=== PATIENT | female | born 1940 | race African-American/Black ===

== ENCOUNTER 2018-05-15 18:23 | Inpatient (IN) | payer OTHER ==
[~2018-05-15] VITALS: Ht 162.6 cm; Wt 62.6 kg
[2018-05-24] MEDS ORDERED: AMLODIPINE BESY10 MG PO (07:48)
[2018-05-24] MEDS ORDERED: SIMVASTATIN40 MG PO (07:49)
[2018-05-24] MEDS ORDERED: TOPROL XL100 M1 PO (07:49)
[2018-05-24] MEDS ORDERED: HYDRALAZINE HCL50 MG PO (07:50)
[2018-05-24] MEDS ORDERED: NAMENDA10 MG PO (07:50)
== END 2018-05-24 11:54 | disposition home health service (06) | DRG 623 ==
LOC: ER 18:23 → SEC-K 05-16 09:03 → MEDJ 05-16 09:03 → MEDI 05-16 09:03 → MEDJ 05-17 19:49
PROC: 8E0ZXY6 Isolation (ICD-10-PCS; 2018-05-17)
PROC: 0JBQ0ZZ Excision of Right Foot Subcutaneous Tissue and Fascia, Open Approach (ICD-10-PCS; principal; 2018-05-18)
DX: E11.621 Type 2 diabetes mellitus with foot ulcer (principal); L97.518 Non-pressure chronic ulcer of other part of right foot with other specified severity; M86.671 Other chronic osteomyelitis, right ankle and foot; E11.65 Type 2 diabetes mellitus with hyperglycemia; I10 Essential (primary) hypertension; N17.8 Other acute kidney failure; G30.8 Other Alzheimer's disease; F02.80 Dementia in other diseases classified elsewhere, unspecified severity, without behavioral disturbance, psychotic disturbance, mood disturbance, and anxiety; D50.8 Other iron deficiency anemias; B95.1 Streptococcus, group B, as the cause of diseases classified elsewhere; E78.4 Other hyperlipidemia; B95.62 Methicillin resistant Staphylococcus aureus infection as the cause of diseases classified elsewhere; E11.69 Type 2 diabetes mellitus with other specified complication

== ENCOUNTER 2019-01-04 14:24 | Inpatient (IN) | payer OTHER ==
[~2019-01-04] VITALS: Ht 144.8 cm; Wt 72.6 kg
[~2019-01-04 14:24] MED LIST: AMLODIPINE BESY10 MG PO; HYDRALAZINE HCL50 MG PO; NAMENDA10 MG PO; SIMVASTATIN40 MG PO; TOPROL XL100 M1 PO
[2019-01-04] MEDS ORDERED: LOSARTAN POTAS100 MG PO (15:40)
[2019-01-04] MEDS ORDERED: GLIMEPIRIDE4 MG PO (15:40)
[2019-01-04] MEDS ORDERED: CARDURA1 MG (15:41)
[2019-01-04] MEDS ORDERED: JANUMET 50-1,01 EACH PO (15:41)
[2019-01-04] MEDS ORDERED: ASPIR 8181 MG PO (15:41)
--- NOTE | 2019-01-04 15:56 | NUR ---
SE RECIBE PTE ALERA Y ORIENTADA X3, EN COMPANIA DE TEE HIJO, PTE INDICA VENIR POR UN DOLOR EN EL COSTADO LADO DERECHO DESDE HACE 2 [place] DE MANERA INTERMITENTE. PTE ES DIABETICA POR LO CUAL SE LE REALIZA DXT A PTE Y SE ENCUENTRA EN 409MG/DL. SE NOTIFICA A SOBRE RESULTADO DE GLUCOSA EN MICHAEL. SE COLOCA A PTE EN HAFSA 10.
--- NOTE | 2019-01-04 17:53 | NUR ---
PACIENTE ALERTA Y ORIENTADA X3. SE ORIENTA SOBRE TX Y PROCEDIMIENTO A REALIZAR Y REFIERE ENTENDER. SE ADMINISTRA MEDICAMENTOS RHIANNON ORDEN MEDICA. SE REALIZA MUESTRAS DE LABORATORIO BAJO MEDIDAS ASEPTICAS. CANALIZACION PATENTE Y BENSON DE EDEMA Y ERITEMA. SE MANTIENE BAJO OBSERVACION POR CAMBIOS SIGNIFICATIVOS.
== END 2019-01-14 11:49 | disposition home or self-care (01) | DRG 418 ==
LOC: ER 14:24 → MEDI 23:56
PROVIDERS: Surgery; ADMIT Internal Medicine
PROC: BF37ZZZ Magnetic Resonance Imaging (MRI) of Pancreas (ICD-10-PCS; 2019-01-04)
PROC: 30233N1 Transfusion of Nonautologous Red Blood Cells into Peripheral Vein, Percutaneous Approach (ICD-10-PCS; 2019-01-04)
PROC: 4A12X4Z Monitoring of Cardiac Electrical Activity, External Approach (ICD-10-PCS; 2019-01-04)
PROC: B246ZZZ Ultrasonography of Right and Left Heart (ICD-10-PCS; 2019-01-04)
PROC: BW40ZZZ Ultrasonography of Abdomen (ICD-10-PCS; 2019-01-04)
PROC: 0FC98ZZ Extirpation of Matter from Common Bile Duct, Via Natural or Artificial Opening Endoscopic (ICD-10-PCS; 2019-01-08)
PROC: 0F798ZZ Dilation of Common Bile Duct, Via Natural or Artificial Opening Endoscopic (ICD-10-PCS; 2019-01-08)
PROC: BF18YZZ Fluoroscopy of Pancreatic Ducts using Other Contrast (ICD-10-PCS; 2019-01-08)
PROC: 0T9B70Z Drainage of Bladder with Drainage Device, Via Natural or Artificial Opening (ICD-10-PCS; 2019-01-10)
PROC: 0FT44ZZ Resection of Gallbladder, Percutaneous Endoscopic Approach (ICD-10-PCS; principal; 2019-01-10 19:15)
DX: K80.50 Calculus of bile duct without cholangitis or cholecystitis without obstruction (principal); N17.8 Other acute kidney failure; L97.411 Non-pressure chronic ulcer of right heel and midfoot limited to breakdown of skin; I12.9 Hypertensive chronic kidney disease with stage 1 through stage 4 chronic kidney disease, or unspecified chronic kidney disease; E11.22 Type 2 diabetes mellitus with diabetic chronic kidney disease; N18.3 Chronic kidney disease, stage 3 (moderate); D63.1 Anemia in chronic kidney disease; Z79.4 Long term (current) use of insulin; E78.2 Mixed hyperlipidemia; D72.828 Other elevated white blood cell count; E11.51 Type 2 diabetes mellitus with diabetic peripheral angiopathy without gangrene; E11.65 Type 2 diabetes mellitus with hyperglycemia

== ENCOUNTER 2019-12-17 19:26 | Inpatient (IN) | payer OTHER ==
[~2019-12-17] VITALS: Ht 157.5 cm; Wt 56.7 kg
[~2019-12-17 19:26] MED LIST changes: +ASPIR 8181 MG PO; +CARDURA1 MG; +GLIMEPIRIDE4 MG PO; +JANUMET 50-1,01 EACH PO; +LOSARTAN POTAS100 MG PO
--- NOTE | 2019-12-17 19:48 | NUR ---
SE RECIBE PTE ALERTA Y ORIENTADA X3 LA CUAL REFIERE VENIR POR ULCERA EN PIE RT. PTE REFEIRE SER DIABETICA E HIPERTENSA. SE MIDEN S/V A PTE Y SE COLOCA EN AREA DE OBSERVACION.
--- NOTE | 2019-12-17 23:51 | NUR ---
PACIENTE ALERTA Y ORIENTADA X3 ES EVALUADA POR DR. GALLO QUIEN ORDENA REALIZAR MUESTRAS DE LABORATORIO Y ADMINISTRAR MEDICAMENTO SE OREINTA A PACIENTE AY FAMILIAR SOBRE ORDEN MEDICA SE EJECUTA ORDEN, PACIENTE EN ESPERA PARA RADIOGRAFIA.
--- NOTE | 2019-12-18 07:31 | NUR ---
SE RECIBE PAICNETE ESTABLE EN CONSUTA CON EL .LE SE OBSERVA PACIENTE TRANUILA CON IVF PATENTE IBRE DEDEMA EN COMPANIA DE FAMILIAR SE MANTIEIEN PACIENTE CON BARANDA EEVADA.
[2019-12-26] MEDS ORDERED: FLUCONAZOLE200 MG PO (14:59)
== END 2019-12-26 19:37 | disposition home or self-care (01) | DRG 629 ==
LOC: ER 19:26 → MEDJ 12-18 15:10 → SEC-K 12-18 15:10 → MEDJ 12-18 18:10
PROVIDERS: ADMIT Internal Medicine
PROC: BL31ZZZ Magnetic Resonance Imaging (MRI) of Lower Extremity Connective Tissue (ICD-10-PCS; 2019-12-22)
PROC: 30233N1 Transfusion of Nonautologous Red Blood Cells into Peripheral Vein, Percutaneous Approach (ICD-10-PCS; 2019-12-24)
PROC: 0QBR0ZZ Excision of Left Toe Phalanx, Open Approach (ICD-10-PCS; principal; 2019-12-25)
DX: E11.69 Type 2 diabetes mellitus with other specified complication (principal); M86.9 Osteomyelitis, unspecified; B37.49 Other urogenital candidiasis; E11.621 Type 2 diabetes mellitus with foot ulcer; I10 Essential (primary) hypertension; G30.9 Alzheimer's disease, unspecified; F02.80 Dementia in other diseases classified elsewhere, unspecified severity, without behavioral disturbance, psychotic disturbance, mood disturbance, and anxiety; E78.5 Hyperlipidemia, unspecified; E11.22 Type 2 diabetes mellitus with diabetic chronic kidney disease; I12.9 Hypertensive chronic kidney disease with stage 1 through stage 4 chronic kidney disease, or unspecified chronic kidney disease; N18.3 Chronic kidney disease, stage 3 (moderate); N17.9 Acute kidney failure, unspecified; D63.1 Anemia in chronic kidney disease; E11.65 Type 2 diabetes mellitus with hyperglycemia; Z89.421 Acquired absence of other right toe(s); Z79.4 Long term (current) use of insulin; B96.5 Pseudomonas (aeruginosa) (mallei) (pseudomallei) as the cause of diseases classified elsewhere

== ENCOUNTER 2019-12-27 08:36 | Emergency (ER) | payer OTHER ==
[~2019-12-27] VITALS: Ht 162.6 cm; Wt 65.8 kg
[~2019-12-27 08:36] MED LIST changes: +FLUCONAZOLE200 MG PO
== END 2019-12-27 14:51 | disposition home or self-care (01) ==
LOC: ER 08:36
DX: T82.898A Other specified complication of vascular prosthetic devices, implants and grafts, initial encounter (principal); L97.528 Non-pressure chronic ulcer of other part of left foot with other specified severity; E11.65 Type 2 diabetes mellitus with hyperglycemia

== ENCOUNTER 2020-04-20 08:36 | Inpatient (IN) | payer OTHER ==
[~2020-04-20] VITALS: Ht 157.5 cm; Wt 44.5 kg
== END 2020-05-11 20:49 | disposition home health service (06) | DRG 239 ==
LOC: ER 08:36 → SURG 16:32
PROVIDERS: Specialist; ADMIT Internal Medicine; ATTEND Internal Medicine
PROC: 0T9B70Z Drainage of Bladder with Drainage Device, Via Natural or Artificial Opening (ICD-10-PCS; 2020-04-20)
PROC: BW40ZZZ Ultrasonography of Abdomen (ICD-10-PCS; 2020-04-21)
PROC: BW4GZZZ Ultrasonography of Pelvic Region (ICD-10-PCS; 2020-04-21)
PROC: 0Y6G0ZZ Detachment at Left Knee Region, Open Approach (ICD-10-PCS; principal; 2020-04-27 12:00)
PROC: 30233N1 Transfusion of Nonautologous Red Blood Cells into Peripheral Vein, Percutaneous Approach (ICD-10-PCS; 2020-04-28)
DX: E11.52 Type 2 diabetes mellitus with diabetic peripheral angiopathy with gangrene (principal); A41.9 Sepsis, unspecified organism; I96 Gangrene, not elsewhere classified; L97.426 Non-pressure chronic ulcer of left heel and midfoot with bone involvement without evidence of necrosis; N17.8 Other acute kidney failure; M86.172 Other acute osteomyelitis, left ankle and foot; B37.89 Other sites of candidiasis; B37.41 Candidal cystitis and urethritis; E87.2 Acidosis; E11.621 Type 2 diabetes mellitus with foot ulcer; E87.8 Other disorders of electrolyte and fluid balance, not elsewhere classified; E86.0 Dehydration; E11.22 Type 2 diabetes mellitus with diabetic chronic kidney disease; E11.65 Type 2 diabetes mellitus with hyperglycemia; I12.9 Hypertensive chronic kidney disease with stage 1 through stage 4 chronic kidney disease, or unspecified chronic kidney disease; N18.3 Chronic kidney disease, stage 3 (moderate); D63.8 Anemia in other chronic diseases classified elsewhere; F03.90 Unspecified dementia, unspecified severity, without behavioral disturbance, psychotic disturbance, mood disturbance, and anxiety; B96.4 Proteus (mirabilis) (morganii) as the cause of diseases classified elsewhere; B96.89 Other specified bacterial agents as the cause of diseases classified elsewhere; B95.2 Enterococcus as the cause of diseases classified elsewhere; B96.6 Bacteroides fragilis [B. fragilis] as the cause of diseases classified elsewhere; B96.1 Klebsiella pneumoniae [K. pneumoniae] as the cause of diseases classified elsewhere; R31.0 Gross hematuria; Z79.4 Long term (current) use of insulin; Z74.01 Bed confinement status; Z03.818 Encounter for observation for suspected exposure to other biological agents ruled out

== ENCOUNTER 2020-07-09 18:39 | Inpatient (IN) | payer OTHER ==
[~2020-07-09] VITALS: Ht 152.4 cm; Wt 38.6 kg
== END 2020-07-13 11:49 | disposition expired | DRG 871 ==
LOC: ER 18:39 → ICU-2 21:37 → ICU 07-13 02:45
PROVIDERS: ADMIT Internal Medicine; ATTEND Internal Medicine
PROC: 0BH17EZ Insertion of Endotracheal Airway into Trachea, Via Natural or Artificial Opening (ICD-10-PCS; principal; 2020-07-09)
PROC: 5A1945Z Respiratory Ventilation, 24-96 Consecutive Hours (ICD-10-PCS; 2020-07-09)
DX: A41.9 Sepsis, unspecified organism (principal); J96.00 Acute respiratory failure, unspecified whether with hypoxia or hypercapnia; R65.21 Severe sepsis with septic shock; E46 Unspecified protein-calorie malnutrition; N17.9 Acute kidney failure, unspecified; E87.2 Acidosis; E27.40 Unspecified adrenocortical insufficiency; B37.49 Other urogenital candidiasis; E86.0 Dehydration; E11.65 Type 2 diabetes mellitus with hyperglycemia; E78.5 Hyperlipidemia, unspecified; I12.9 Hypertensive chronic kidney disease with stage 1 through stage 4 chronic kidney disease, or unspecified chronic kidney disease; N18.3 Chronic kidney disease, stage 3 (moderate); G30.9 Alzheimer's disease, unspecified; F02.80 Dementia in other diseases classified elsewhere, unspecified severity, without behavioral disturbance, psychotic disturbance, mood disturbance, and anxiety; Z89.512 Acquired absence of left leg below knee; Z09 Encounter for follow-up examination after completed treatment for conditions other than malignant neoplasm; Z79.4 Long term (current) use of insulin; Z20.828 Contact with and (suspected) exposure to other viral communicable diseases; D63.1 Anemia in chronic kidney disease